=== PATIENT | male | born 1940 | race Caucasian/White ===

== ENCOUNTER → 2021-12-08 09:38 | Outpatient (BNVA) | payer MEDICARE, SELFPAY | PROVIDERS: PCP Pediatrics; Visit Provider Internal Medicine | DX: M16.11 Unilateral primary osteoarthritis, right hip (principal) | CPT/HCPCS: 99202 ==

== ENCOUNTER 2022-01-12 08:36 | Outpatient (REF) | payer MEDICARE, SELFPAY ==
--- NOTE | ~2022-01-12 | XR_ITS ---
EXAMINATION: XR PELVIS CLINICAL INFORMATION: Pain. COMPARISON: None TECHNIQUE: AP view of the pelvis. FINDINGS: Bony alignment and mineralization are normal. There is narrowing of the medial aspect of the right acetabular joint space, and peripheral osteophytes are seen of the articular surface of the right femoral head. The left acetabular joint space is well-maintained. There is cortical irregularity and a small osteophyte of the lateral aspect of the left acetabular roof. The femoral heads appear smooth. There is no fracture or dislocation. There are right pelvic phleboliths. No foreign body is seen. 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 No fracture or dislocation is seen.
== END 2022-01-12 08:37 | disposition home or self-care (01) ==
LOC: HO.HOSX 08:36
PROVIDERS: Visit Provider Orthopaedic Surgery
DX: M16.11 Unilateral primary osteoarthritis, right hip (principal); C91.10 Chronic lymphocytic leukemia of B-cell type not having achieved remission; D69.6 Thrombocytopenia, unspecified
CPT/HCPCS: 72170; 99202

== ENCOUNTER → 2022-07-06 10:33 | Outpatient (BNVA) | payer MEDICARE, SELFPAY | PROVIDERS: PCP Internal Medicine; Visit Provider Internal Medicine | DX: M25.50 Pain in unspecified joint (principal); M75.100 Unspecified rotator cuff tear or rupture of unspecified shoulder, not specified as traumatic; M35.3 Polymyalgia rheumatica | CPT/HCPCS: 99212 ==

== ENCOUNTER 2022-07-08 09:38 | Outpatient (REF) | payer MEDICARE, SELFPAY ==
[2022-07-08 11:59] LABS: Rheumatoid Factor < 15.0 IU/mL (<15.0)
[2022-07-08 12:31] LABS: Erythrocyte Sedimentation Rate 14 MM/HR (0-15)
[2022-07-09 14:17] LABS: CRP High Sensitivity 8.1 mg/L
== END 2022-07-08 09:39 | disposition home or self-care (01) ==
LOC: HO.WFDLDS 09:38
PROVIDERS: Visit Provider Internal Medicine
DX: M25.50 Pain in unspecified joint (principal)
CPT/HCPCS: 36415; 85652; 86141; 86431

== ENCOUNTER 2022-07-17 12:44 | Outpatient (REF) | payer MEDICARE, SELFPAY ==
--- NOTE | ~2022-07-17 | XR_ITS ---
EXAMINATION: XR WRIST, RIGHT XR HAND, RIGHT CLINICAL INFORMATION: Right hand joint pain. COMPARISON: None TECHNIQUE: PA, lateral, and oblique views of the right wrist and PA, lateral, and oblique views of the right hand FINDINGS: RIGHT WRIST: There is mild bony demineralization. There is a slight ulnar positive variance. The proximal and carpal rows are intact. There is marked osteoarthritic change of the first carpometacarpal joint. No fracture or dislocation is seen. There is no abnormal bone erosion. The ulnar styloid appears intact. No soft tissue swelling is seen. RIGHT HAND: There is mild bony demineralization. There is mild osteoarthritic change of the interphalangeal joint of the thumb, the fourth distal interphalangeal joint and of the second through fifth proximal interphalangeal joints. There is mild osteoarthritic change of the first carpal metacarpal joint, and moderately severe osteoarthritic changes seen of the second and third carpometacarpal joint. No fracture or dislocation is seen. There is no abnormal bone erosion. No soft tissue swelling, gas or foreign body is seen. 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 No fracture or dislocation is seen. There is no abnormal bone erosion. EXAMINATION: XR WRIST, LEFT XR HAND, LEFT CLINICAL INFORMATION: Left hand joint pain. COMPARISON: None TECHNIQUE: PA, lateral, and oblique views of the left wrist and PA, lateral, and oblique views of the left hand FINDINGS: LEFT WRIST: There is mild bony demineralization. There is a slight ulnar positive variance appeared the proximal and distal carpal rows are intact. There is marked osteoarthritic change of the first carpometacarpal joint. There is some narrowing of the radiocarpal joint. No fracture or dislocation is seen. There is no abnormal bone erosion. The ulnar styloid is intact. No soft tissue swelling is seen. LEFT HAND: There is mild bony demineralization. There is mild osteoarthritic change of the interphalangeal joint of the left thumb and of the second through fifth proximal interphalangeal joints. No fracture or dislocation is seen. There is no abnormal bony erosive change. No focal soft tissue swelling, gas or foreign body is noted. 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 There is no acute fracture or dislocation. No abnormal bony erosive change is seen.
--- NOTE | ~2022-07-17 | XR_ITS ---
EXAMINATION: XR SHOULDER, RIGHT CLINICAL INFORMATION: Pain. COMPARISON: None TECHNIQUE: AP external rotation, Grashey, scapular Y, and axillary views of the right shoulder. FINDINGS: There is mild bony demineralization. The glenohumeral joint is intact. The acromioclavicular and coracoclavicular intervals are normal. There is a small distal acromial undersurface osteophyte. There is cortical irregularity of the greater tuberosity of the proximal right humerus. No unusual soft tissue calcification is seen. There is no foreign body. No right pneumothorax is seen. XR/XR shoulder RT min 2V IMPRESSION: 1. No fracture or dislocation is seen. 2. Findings suggest right rotator cuff impingement. No lauri calcific tendinitis is seen. EXAMINATION: XR SHOULDER, LEFT CLINICAL INFORMATION: Pain. COMPARISON: None TECHNIQUE: AP external rotation, Grashey, scapular Y, and axillary views of the left shoulder. FINDINGS: There is mild bony demineralization. The glenohumeral joint is intact and shows mild peripheral osteophyte formation. The acromioclavicular and coracoclavicular intervals are normal. There is a distal acromial undersurface osteophyte. There is cortical irregularity of the greater tuberosity of the proximal left humerus. No unusual soft tissue calcification is seen. There is no foreign body. No left pneumothorax is seen. IMPRESSION: 1. 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 2. Findings suggest possible left rotator cuff impingement. No lauri calcific tendinitis is seen.
--- NOTE | ~2022-07-17 | XR_ITS ---
EXAMINATION: XR SHOULDER, RIGHT CLINICAL INFORMATION: Pain. COMPARISON: None TECHNIQUE: AP external rotation, Grashey, scapular Y, and axillary views of the right shoulder. FINDINGS: There is mild bony demineralization. The glenohumeral joint is intact. The acromioclavicular and coracoclavicular intervals are normal. There is a small distal acromial undersurface osteophyte. There is cortical irregularity of the greater tuberosity of the proximal right humerus. No unusual soft tissue calcification is seen. There is no foreign body. No right pneumothorax is seen. XR/XR shoulder LT min 2V IMPRESSION: 1. No fracture or dislocation is seen. 2. Findings suggest right rotator cuff impingement. No lauri calcific tendinitis is seen. EXAMINATION: XR SHOULDER, LEFT CLINICAL INFORMATION: Pain. COMPARISON: None TECHNIQUE: AP external rotation, Grashey, scapular Y, and axillary views of the left shoulder. FINDINGS: There is mild bony demineralization. The glenohumeral joint is intact and shows mild peripheral osteophyte formation. The acromioclavicular and coracoclavicular intervals are normal. There is a distal acromial undersurface osteophyte. There is cortical irregularity of the greater tuberosity of the proximal left humerus. No unusual soft tissue calcification is seen. There is no foreign body. No left pneumothorax is seen. IMPRESSION: 1. 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 2. Findings suggest possible left rotator cuff impingement. No lauri calcific tendinitis is seen.
[2022-07-17 13:24] LABS: Basophils Percent Auto 0.3 % (0-2); Eosinophils Percent Auto 0.3 % (0-4); Hematocrit 38.6 % (42.0-52.0); Hemoglobin 12.2 g/dl (14.0-18.0); Imm Gran Abs Auto 0.14 X10*3/uL (0.00-0.03); Imm Gran Pct Auto 1.2 % (0.0-0.4); Lymphocytes Percent Auto 8.8 % (20-40); MANUAL DIFF FLAG SCAN; Mean Corpuscular HGB Conc 31.6 g/dl (31.0-36.0); Mean Corpuscular Hemoglobin 26.6 pg (27.0-33.0); Mean Corpuscular Volume 84.3 fL (80.0-98.0); Monocytes Absolute Auto 2.5 X10*3/uL (0.1-1.2); Monocytes Percent Auto 22.2 % (2-11); Neutrophils Absolute Auto 7.7 x10*3/uL (2.0-8.3); Neutrophils Percent Auto 67.2 % (45-73); Red Blood Count 4.58 X10*6/uL (4.60-5.80); Red Cell Distribution Width 14.6 % (11.0-16.0); SCAN SMEAR FLAG 1; White Blood Count 11.4 X10*3/uL (4.8-10.8)
[2022-07-17 13:53] LABS: Platelet Count 87 X10*3/uL (160-400)
[2022-07-17 13:54] LABS: SLIDE REVIEW VERIFIED
[2022-07-17 14:00] LABS: Erythrocyte Sedimentation Rate 14 MM/HR (0-15)
[2022-07-17 14:01] LABS: Alanine Aminotransferase 18 U/L (0-40); Albumin Level 4.3 g/dL (3.5-5.0); Alkaline Phosphatase 147 U/L (39-117); Anion Gap 16 (12-20); Aspartate Amino Transferase 26 U/L (5-37); Bilirubin Total 0.4 mg/dL (0.0-1.0); Blood Urea Nitrogen 18 mg/dL (9-16); C Reactive Protein 0.69 mg/dL (< or = 0.50); Calcium 9.8 mg/dL (8.4-10.2); Carbon Dioxide 25 mmol/L (22-29); Chloride 104 mmol/L (96-108); Estimated Glomerular Filt Rate > 60; Glucose Random 111 mg/dL (60-115); Potassium 4.7 mmol/L (3.3-5.1); Rheumatoid Factor < 15.0 IU/mL (<15.0); Sodium 140 mmol/L (135-145); Total Protein 7.5 g/dL (6.5-8.0); Uric Acid 4.9 mg/dL (3.4-7.0)
[2022-07-20 17:02] LABS: Cyclic Citrullinated Peptide <16 UNITS
== END 2022-07-17 12:45 | disposition home or self-care (01) ==
LOC: HO.LAB 12:44
PROVIDERS: Visit Provider Student in an Organized Health Care Education/Training Program
DX: M25.542 Pain in joints of left hand (principal); M25.541 Pain in joints of right hand; M25.512 Pain in left shoulder; M25.511 Pain in right shoulder
CPT/HCPCS: 36415; 73030; 73110; 73130; 80053; 82550; 84550; 85025; 85652; 86140; 86200; 86431; 99202

== ENCOUNTER → 2022-07-28 10:17 | Outpatient (BNVA) | payer MEDICARE, SELFPAY | PROVIDERS: PCP Internal Medicine; Visit Provider Student in an Organized Health Care Education/Training Program | DX: M12.811 Other specific arthropathies, not elsewhere classified, right shoulder (principal) | CPT/HCPCS: 99212 ==

== ENCOUNTER → 2022-10-28 10:21 | Outpatient (BNVA) | payer MEDICARE, SELFPAY | PROVIDERS: PCP Internal Medicine; Visit Provider Student in an Organized Health Care Education/Training Program | DX: M12.811 Other specific arthropathies, not elsewhere classified, right shoulder (principal); M25.511 Pain in right shoulder; M25.512 Pain in left shoulder; M25.612 Stiffness of left shoulder, not elsewhere classified; M25.611 Stiffness of right shoulder, not elsewhere classified | CPT/HCPCS: 99212 ==